=== PATIENT | male | born 1985 | race Caucasian/White ===

== ENCOUNTER 2016-11-17 21:48 | Emergency (ER) | payer OTHER ==
[~2016-11-17] VITALS: Ht 177.8 cm; Wt 133.8 kg
[2016-11-17 22:04] VITALS: BP 149/87
--- NOTE | 2016-11-17 22:27 | NUR ---
PT TAKEN TO [facility] FROM [facility]
--- NOTE | 2016-11-17 22:30 | NUR ---
31Y/M PATIENT PRESENTS TO ED WITH C/O LOWER BACK PAIN X 1 DAY . PT STATES PAIN STARTED AFTER WORKING OUT, NO FEVER . DENIES N/V/D; SKIN IS PINK/WARM/DRY; AAOX4 WITH EVEN AND STEADY GAIT; LUNGS CLEAR BL; HR EVEN AND REGULAR; PT DENIES ANY FEVER, CP, SOB, OR COUGH AT THIS TIME; PATIENT STATES PAIN OF 5/10 AT THIS TIME; VSS; PATIENT POSITIONED FOR COMFORT; HOB ELEVATED; BEDRAILS UP X2; BED DOWN. ER MD MADE AWARE OF PT STATUS.
--- NOTE | 2016-11-17 22:36 | NUR ---
PT RETURN FROM XRAY TO LOBBY
--- NOTE | 2016-11-17 22:44 | NUR ---
PT TAKEN TO BED 8
[2016-11-17] MEDS ORDERED: traMADol 50 MG TAB PO ONE (23:15)
--- NOTE | 2016-11-17 23:40 | NUR ---
Patient discharged with v/s stable. Written and verbal after care instructions given and explained. Patient alert, oriented and verbalized understanding of instructions. Ambulatory with steady gait. All questions addressed prior to discharge. ID band removed. Patient advised to follow up with PMD. Rx of TRAMADOL 50 MG, SOMA 350 MG given. Patient educated on indication of medication including possible reaction and side effects. Opportunity to ask questions provided and answered.
[2016-11-17 23:44] VITALS: BP 125/78
== END 2016-11-17 23:40 | disposition home or self-care (01) ==
LOC: MED 21:48
DX: S39.012A Strain of muscle, fascia and tendon of lower back, initial encounter (principal); R03.0 Elevated blood-pressure reading, without diagnosis of hypertension; Z88.6 Allergy status to analgesic agent; Z88.8 Allergy status to other drugs, medicaments and biological substances

== ENCOUNTER 2017-10-27 15:31 | Emergency (ER) | payer OTHER ==
[~2017-10-27] VITALS: Ht 177.8 cm; Wt 147.4 kg
[2017-10-27 16:06] VITALS: BP 159/92
--- NOTE | 2017-10-27 16:11 | NUR ---
pt to lobby awaiting avaiable bed. gcs=15. rr are even and unlabored. vss. no acute distress at this time.
--- NOTE | 2017-10-27 17:12 | NUR ---
PATIENT WALKED TO BED 11
--- NOTE | 2017-10-27 17:13 | NUR ---
32/M BIB with c/o left hand and wrist pain radiating to left shoudler with abduction x yesterday s/p "lifting heavy boxes". swelling noted to left wrist and hand. cms intact. limited rom to left wrist. AAOX4 WITH EVEN AND STEADY GAIT; LUNGS CLEAR BL. PATIENT STATES PAIN OF 10/10 AT THIS TIME. PATIENT POSITIONED FOR COMFORT; HOB ELEVATED; BEDRAILS UP X2; BED DOWN. ER MD MADE AWARE OF PT STATUS.
--- NOTE | 2017-10-27 17:39 | NUR ---
Patient being evaluated by DR BUSTOS at bedside.
--- NOTE | 2017-10-27 17:47 | NUR ---
PT TAKEN TO [facility] VIA W/C ACCOMPANIED BY [employer].
[2017-10-27] MEDS ORDERED: HYDROcodone/APAP 5/325 MG 1 TAB TAB PO ONE (18:20)
[2017-10-27 18:48] VITALS: BP 156/90
--- NOTE | 2017-10-27 18:48 | NUR ---
Patient discharged with v/s stable. Written and verbal after care instructions given and explained. Patient alert, oriented and verbalized understanding of instructions. Ambulatory with steady gait. All questions addressed prior to discharge. ID band removed. Patient advised to follow up with PMD. Rx of NORCO 5/325MG given. Patient educated on indication of medication including possible reaction and side effects. Opportunity to ask questions provided and answered.
== END 2017-10-27 18:48 | disposition home or self-care (01) ==
LOC: MED 15:31
DX: M25.532 Pain in left wrist (principal); X50.0XXA Overexertion from strenuous movement or load, initial encounter; Y93.89 Activity, other specified; Y92.89 Other specified places as the place of occurrence of the external cause; Y99.8 Other external cause status; Z88.6 Allergy status to analgesic agent
CPT/HCPCS: 73100; 73130; 99284